=== PATIENT | female | born 2000 | race American Indian/Alaskan Native ===

== ENCOUNTER 2021-12-13 11:27 | Emergency (ER) | payer SELFPAY ==
[2021-12-13 12:17] VITALS: BP 126/64
[2021-12-13] MEDS ORDERED: HYDROcodone/ACETAMINOPHEN 5-325 MG TAB PO ONE (13:20)
[2021-12-13] MEDS ORDERED: IBUPROFEN 600 MG TAB PO ONE (13:20)
[2021-12-13] MEDS ORDERED: ONDANSETRON 4 MG ODT TAB PO ONE (13:20)
--- NOTE | 2021-12-13 13:56 | XRay Report ---
RIGHT WRIST 3 VIEW(S) INDICATION / CLINICAL INFORMATION: Hand Injury- pain COMPARISON: None available. FINDINGS: BONES / JOINT(S): No acute fracture or subluxation. No significant arthritis. SOFT TISSUES: No significant abnormality. ADDITIONAL FINDINGS: None. Signer Name: Dominick Harman MD Signed: 12/13/2021 1:52 PM Workstation Name: [id number]
--- NOTE | 2021-12-13 13:57 | XRay Report ---
RIGHT HAND 3 VIEW(S) INDICATION / CLINICAL INFORMATION: Pain - Injury COMPARISON: None available. FINDINGS: BONES / JOINT(S): No acute fracture or subluxation. No significant arthritis. SOFT TISSUES: No significant abnormality. ADDITIONAL FINDINGS: None. Signer Name: Dominick Harman MD Signed: 12/13/2021 1:53 PM Workstation Name: [id number]
--- NOTE | 2021-12-13 14:20 | Emergency Department Report ---
ED Upper Extremity Inj HPI - General Chief Complaint: Nausea/Vomiting/Diarrhea Stated Complaint: RT ARM LAC HIT GLASS/TREATED AT [place] LAST NIGHT Source: patient Mode of arrival: Ambulatory Limitations: No Limitations - History of Present Illness Initial Comments: Patient is a 21-year-old -[place] female with past medical history of asthma presents to the ED with complaint of right hand pain and swelling with a right wrist suture laceration wound after she punched a glass window 24 hours ago. Patient states that she sustained extensive laceration wound on right wri st and went to [facility] emergency department where her right wrist was sutured. Patient states that she left [facility] AGAINST MEDICAL ADVICE since there was a conflict of information being given to her regarding findings. Patient states that she was not officially discharged so she did not get any pain medications or any prophylactic antibiotics. Patient however states that she does not want to take any booster tetanus vaccination. Patient denies dizziness, syncope, fever and chills, nausea and vomiting, cough, sore throat, fall, numbness and tingling or weakness of right hand and change in vision. MD Complaint: Injury to:: right, wrist (Right wrist sutured laceration), hand -: Sudden, hour(s) (24) Other Extremity Injury: Hand: Right (pain), Wrist: Right (right wrist laceration) Other Injuries: none Handedness: right Place: home Severity scale (0 -10): 7 Improves With: none Worsens With: movement of extremity Context: direct blow, injury Associated Symptoms: denies other symptoms. denies: weakness, numbness, neck pain, suspects foreign body, nausea/vomiting, heard/felt popping sensat - Related Data Previous Rx's Medication Instructions Recorded Last Taken Type Baclofen 20 mg PO Q12H PRN #20 tab 12/13/21 Unknown Rx Ibuprofen [Motrin] 800 mg PO Q8HR PRN #30 tablet 12/13/21 Unknown Rx cephALEXin [Keflex] 500 mg PO Q8HR #30 cap 12/13/21 Unknown Rx traMADoL [Ultram] 50 mg PO Q6HR PRN #10 tablet 12/13/21 Unknown Rx Allergies Allergy/AdvReac Type Severity Reaction Status Date / Time No Known Allergies Allergy Verified 12/13/21 14:17 ED Review of Systems ROS: Stated complaint: RT ARM LAC HIT GLASS/TREATED AT [place] LAST NIGHT Other details as noted in HPI Constitutional: denies: chills, fever Eyes: denies: eye pain, eye discharge, vision change ENT: denies: ear pain, throat pain Respiratory: denies: cough, shortness of breath, wheezing Cardiovascular: denies: chest pain, palpitations Endocrine: no symptoms reported Gastrointestinal: denies: abdominal pain, nausea, diarrhea Genitourinary: denies: urgency, dysuria, discharge Musculoskeletal: joint swelling, arthralgia (Palpable right hand and right wrist tenderness with mild swelling, sutured ventral right wrist laceration wound), myalgia. denies: back pain Skin: other (Sutured ventral right wrist laceration wound). denies: rash, lesions Neurological: denies: headache, weakness, paresthesias Psychiatric: denies: anxiety, depression Hematological/Lymphatic: denies: easy bleeding, easy bruising ED Past Medical Hx - Past Medical History Previous Medical History?: Yes Hx Asthma: Yes - Surgical History Past Surgical History?: No - Medications Home Medications: Home Medications Medication Instructions Recorded Confirmed Last Taken Type Baclofen 20 mg PO Q12H PRN #20 tab 12/13/21 Unknown Rx Ibuprofen [Motrin] 800 mg PO Q8HR PRN #30 tablet 12/13/21 Unknown Rx cephALEXin [Keflex] 500 mg PO Q8HR #30 cap 12/13/21 Unknown Rx traMADoL [Ultram] 50 mg PO Q6HR PRN #10 tablet 12/13/21 Unknown Rx ED Physical Exam - General Limitations: No Limitations General appearance: alert, in no apparent distress - Head Head exam: Present: atraumatic, normocephalic, normal inspection - Eye Eye exam: Present: normal appearance, PERRL, EOMI Pupils: Present: normal accommodation - ENT ENT exam: Present: normal exam, normal orophraynx, mucous membranes moist, TM's normal bilaterally, normal external ear exam - Neck Neck exam: Present: normal inspection, full ROM. Absent: tenderness, lymphadenopathy - Respiratory Respiratory exam: Present: normal lung sounds bilaterally. Absent: respiratory distress, wheezes, rales, rhonchi, chest wall tenderness, accessory muscle use, decreased breath sounds - Cardiovascular Cardiovascular Exam: Present: normal rhythm, tachycardia, normal heart sounds. Absent: systolic murmur, diastolic murmur, rubs, gallop - GI/Abdominal GI/Abdominal exam: Present: soft, normal bowel sounds. Absent: tenderness, guarding, rebound, hyperactive bowel sounds, hypoactive bowel sounds, organomegaly - Extremities Exam Extremities exam: Present: normal inspection, full ROM, tenderness (Palpable right hand and right wrist tenderness with mild swelling; sutured ventral right wrist laceration wound), normal capillary refill, joint swelling. Absent: pedal edema, calf tenderness - Back Exam Back exam: Present: normal inspection, full ROM, muscle spasm. Absent: tenderness, CVA tenderness (L), paraspinal tenderness - Neurological Exam Neurological exam: Present: alert, oriented X3, CN II-XII intact, normal gait, reflexes normal - Psychiatric Psychiatric exam: Present: normal affect, normal mood - Skin Skin exam: Present: warm, dry, intact, normal color, other (Sutured ventral right wrist laceration wound). Absent: rash ED Course Vital Signs 12/13/21 12/13/21 12:03 12:15 Temperature 99.4 F 98.3 F Pulse Rate 112 H 78 Respiratory 18 18 Rate Blood Pressure 122/76 126/64 [Right] O2 Sat by Pulse 98 98 Oximetry ED Medical Decision Making - Radiology Data Radiology results: report reviewed, image reviewed [facility] [address] [place] [address] XRay Report Signed Patient: JUAN DANIEL DOUGLASS MR#: [id number] [birth year] : 2000 Acct:[id number] Age/Sex: 21 / F ADM Date: 12/13/21 Loc: ED Attending Dr: Ordering Physician: TOSHA LUNDBERG Date of Service: 12/13/21 Procedure(s): XR wrist 3+V RT Accession Number(s): [id number] cc: TOSHA LUNDBERG Fluoro Time In Minutes: RIGHT WRIST 3 VIEW(S) INDICATION / CLINICAL INFORMATION: Hand Injury- pain COMPARISON: None available. FINDINGS: BONES / JOINT(S): No acute fracture or subluxation. No significant arthritis. SOFT TISSUES: No significant abnormality. ADDITIONAL FINDINGS: None. Signer Name: Dominick Andrew MD Signed: 12/13/2021 1:52 PM Workstation Name: [id number] Transcribed By: SB Dictated By: DOMINICK ANDREW MD Electronically Authenticated By: DOMINICK ANDREW MD Signed Date/Time: 12/13/211351 DD/ 51 TD/TT: Print [facility] [address] [place] [address] XRay Report Signed Patient: JUAN DANIEL DOUGLASS MR#: [id number] 2 : 2000 Acct:[id number] Age/Sex: 21 / F ADM Date: 12/13/21 Loc: ED Attending Dr: Ordering Physician: TOSHA LUNDBERG Date of Service: 12/13/21 Procedure(s): XR hand 3+V RT Accession Number(s): [id number] cc: TOSHA LUNDBERG Fluoro Time In Minutes: RIGHT HAND 3 VIEW(S) INDICATION / CLINICAL INFORMATION: Pain - Injury COMPARISON: None available. FINDINGS: BONES / JOINT(S): No acute fracture or subluxation. No significant arthritis. SOFT TISSUES: No significant abnormality. ADDITIONAL FINDINGS: None. Signer Name: Dominick Andrew MD Signed: 12/13/2021 1:53 PM Workstation Name: [id number] Transcribed By: SB Dictated By: DOMINICK ANDREW MD Electronically Authenticated By: DOMINICK ANDREW MD Signed Date/Time: 12/13/211352 DD/ 51 TD/TT: - Medical Decision Making This is a 21-year-old -[place] female with past medical history of asthma presents to the ED with complaint of right hand pain and swelling with a right wrist suture laceration wound after she punched a glass window 24 hours ago. Patient states that she sustained extensive laceration wound on right wrist and went to [facility] emergency department where her right wrist was sutured. Patient states that she left [facility] AGAINST MEDICAL ADVICE since there was a conflict of information being given to her regarding findings. Patient states that she was not officially discharged so she did not get any pain medications or any prophylactic antibiotics. In the ED, patient is alert and oriented x3 and is not in any distress. Patient however appears to be in significant pain. Right hand x-ray showed no acute fractures or subluxations. Right wrist x-ray showed no acute fractures or subluxations. The patient's previously sutured wound was dressed appropriately and the patient was discharged home on pain medications and prophylactic antibiotics and advised to follow-up with her primary care physician in 7 to 10 days for reevaluation or return to the ED immediately if symptoms get worse. - Differential Diagnosis Hand fracture; wrist fracture; wrist sprain; hand sprain; wrist laceration Critical care attestation.: If time is entered above; I have spent that time in minutes in the direct care of this critically ill patient, excluding procedure time. ED Disposition Clinical Impression: Contusion of right hand including fingers Qualifiers: Encounter type: initial encounter Qualified Code(s): S60.221A - Contusion of right hand, initial encounter; S60.00XA - Contusion of unspecified finger without damage to nail, initial encounter Sprain of right wrist Qualifiers: Encounter type: initial encounter Qualified Code(s): S63.501A - Unspecified sprain of right wrist, initial encounter Laceration of right wrist without complication Qualifiers: Encounter type: subsequent encounter Qualified Code(s): S61.511D - Laceration without foreign body of right wrist, subsequent encounter Disposition: 01 HOME / SELF CARE / HOMELESS Is pt being admited?: No Does the pt Need Aspirin: No Condition: Stable Instructions: Contusion, [id number], Hand Contusion, Intermetacarpal Sprain, Sutures, Carly, or Adhesive Wound Closure, [id number], Sutured Wound Care, [id number] Additional Instructions: The right wrist x-ray showed no acute fractures or subluxations. The right hand x-ray also showed no acute fracture or subluxation. Your injuries are likely musculoskeletal following the injury 24 hours ago. Therefore take pain medication as needed, take the antibiotic prophylactically and follow-up with your primary care physician in 7 to 10 days for reevaluation. You may return to the ED or your primary care physician in 12 to 14 days for suture removal although the suture was not originally placed by this hospital emergency department. Otherwise return to the ED immediately if symptoms get worse. Prescriptions: Baclofen 20 mg PO Q12H PRN #20 tab PRN Reason: Muscle Spasm cephALEXin [Keflex] 500 mg PO Q8HR #30 cap Ibuprofen [Motrin] 800 mg PO Q8HR PRN #30 tablet PRN Reason: Pain , Severe (7-10) traMADoL [Ultram] 50 mg PO Q6HR PRN #10 tablet PRN Reason: Pain Referrals: [facility] [Provider Group] - 7-10 days Forms: Work/School Release Form(ED) Time of Disposition: 14:39 Print Language: [place]
== END 2021-12-13 15:09 | disposition home or self-care (01) ==
LOC: ED 11:27
DX: S63.501A Unspecified sprain of right wrist, initial encounter (principal); S61.511A Laceration without foreign body of right wrist, initial encounter; J45.909 Unspecified asthma, uncomplicated; X58.XXXA Exposure to other specified factors, initial encounter; Y93.89 Activity, other specified; Y92.89 Other specified places as the place of occurrence of the external cause; Y99.8 Other external cause status
CPT/HCPCS: 99283